=== PATIENT | female | born 1990 | race African-American/Black ===

== ENCOUNTER 2016-06-03 01:50 | Emergency (ER) | payer OTHER ==
[~2016-06-03] VITALS: Ht 165.1 cm; Wt 73.5 kg
[~2016-06-03 01:50] MED LIST: ANUSOL HC,ANUCO25 MG PR; BACTRIM,SEPT1 TABLET PO; COLACE100 MG PO; FIORICET 50-301 EACH PO; FLEXERIL10 MG PO; HYDROCODON-ACE1 EAC7 PO; LIDODERM 5% P1 PATCH TD; MOTRIN600 MG PO; MOTRIN800 MG PO; NAPROSYN500 MG PO; NOHOMEMEDS; PERCOCET 5/31 TABLET PO; PREDNISONE20 MG PO; PROMETHAZINE HC25 M1 PO; ROBITUSSIN AC,T10 ML PO; SPIRIVA1 INHALATI IH; ZOFRAN4 MG PO
[2016-06-03 03:03] LABS: HEMATOCRIT 38.7 % (36.0-46.0); MCH 29.5 PG (29.0-34.0); MCHC 32.6 G/DL (30.0-36.0); MCV 90.6 FL (83-99); MEAN PLAT.VOLUME 11.5 uM^3 (9.5-12.4); PLATELET COUNT 278 K/uL (156-360); RBC DIS.WIDTH-CV 12.2 % (11.8-14.6); RBC DIS.WIDTH-SD 40.7 % (39-53); RED BLOOD COUNT 4.27 M/uL (3.80-5.20); WHITE BLOOD COUNT 6.8 K/uL (4.1-10.2)
[2016-06-03 03:10] LABS: CHLORIDE 106 mEq/L (99-109); POTASSIUM 4.2 mEq/L (3.7-5.4); SODIUM 142 mEq/L (136-147)
[2016-06-03 03:12] LABS: GLUCOSE 90 mg/dL (70-99)
[2016-06-03 03:13] LABS: ANION GAP 12 MEQ/L (2-14)
[2016-06-03 03:14] LABS: TOTAL BILIRUBIN 0.3 mg/dL (0.0-1.0)
[2016-06-03 03:15] LABS: SERUM ETHYL ALCOHOL 98 mg/dL
[2016-06-03 03:16] LABS: ALKALINE PHOSPHATASE 59 IU/L (3-129); GFR ESTIMATE (CALCULATED) > 59 mL/min/
[2016-06-03 03:17] LABS: UREA NITROGEN (BUN) 10 mg/dL (9-23)
[2016-06-03 03:49] LABS: ADD MIUA? NO; BILIRUBIN NEGATIVE; BLOOD NEGATIVE; COLOR YELLOW ((YELLOW)); GLUCOSE (STRIP) NEGATIVE; KETONES NEGATIVE; LEUKOCYTES NEGATIVE; NITRITE NEGATIVE; PROTEIN (STRIP) NEGATIVE; UROBILINOGEN 0.2 MG/DL (0.2-1.0)
[2016-06-03 03:58] LABS: ADD MEDTOX COMMENT Y; AMPHETAMINE NEGATIVE (500 ng/mL); BARBITURATES NEGATIVE (200 ng/mL); BENZODIAZEPINES NEGATIVE (150 ng/mL); COCAINE NEGATIVE (150 ng/mL); INTERNAL CONTROLS VALID? YES; METHADONE NEGATIVE (200 ng/mL); METHAMPHETAMINE NEGATIVE (500 ng/mL); OPIATES (MORPHINE) NEGATIVE (100 ng/mL); OXYCODONE NEGATIVE (100 ng/mL); PHENCYCLIDINE NEGATIVE (25 ng/mL); PROPOXYPHENE NEGATIVE (300 ng/mL); THC CANNABINOIDS PRESUMPTIVE POSITIVE (50 ng/mL); TRICYCLIC ANTIDEPRESSANTS NEGATIVE (300 ng/mL)
[2016-06-03 04:24] VITALS: BP 121/78
== END 2016-06-03 04:24 | disposition home or self-care (01) ==
LOC: EME → EDBD 01:50 → EME 04:24
PROVIDERS: Emergency Medicine
DX: F41.9 Anxiety disorder, unspecified (principal); F10.129 Alcohol abuse with intoxication, unspecified; Y90.4 Blood alcohol level of 80-99 mg/100 ml
CPT/HCPCS: 80053; 81003; 84999; 85027; 99281; 99284; G0480

== ENCOUNTER 2016-07-31 20:57 | Emergency (ER) | payer OTHER ==
[~2016-07-31] VITALS: Ht 162.6 cm; Wt 62.5 kg
[2016-07-31 21:26] LABS: HEMATOCRIT 42.1 % (36.0-46.0); MCH 29.6 PG (29.0-34.0); MCHC 32.5 G/DL (30.0-36.0); MCV 90.9 FL (83-99); MEAN PLAT.VOLUME 11.7 uM^3 (9.5-12.4); PLATELET COUNT 250 K/uL (156-360); RBC DIS.WIDTH-CV 11.9 % (11.8-14.6); RBC DIS.WIDTH-SD 39.8 % (39-53); RED BLOOD COUNT 4.63 M/uL (3.80-5.20); WHITE BLOOD COUNT 6.9 K/uL (4.1-10.2)
[2016-07-31 21:50] LABS: CHLORIDE 104 mEq/L (99-109); POTASSIUM 3.9 mEq/L (3.7-5.4); SODIUM 140 mEq/L (136-147)
[2016-07-31 21:52] LABS: GLUCOSE 92 mg/dL (70-99)
[2016-07-31 21:54] LABS: ANION GAP 11 MEQ/L (2-14); TOTAL BILIRUBIN 0.4 mg/dL (0.0-1.0)
[2016-07-31 21:56] LABS: ALKALINE PHOSPHATASE 53 IU/L (3-129); GFR ESTIMATE (CALCULATED) > 59 mL/min/
[2016-07-31 21:57] LABS: UREA NITROGEN (BUN) 13 mg/dL (9-23)
[2016-07-31 22:06] LABS: QUANTITATIVE HCG < 4.0 MIU/ML
[2016-08-01 00:57] LABS: ADD MIUA? YES; BILIRUBIN NEGATIVE; BLOOD NEGATIVE; COLOR YELLOW ((YELLOW)); GLUCOSE (STRIP) NEGATIVE; KETONES 5; LEUKOCYTES MODERATE; NITRITE NEGATIVE; PROTEIN (STRIP) 30; SPECIFIC GRAVITY 1.024 (1.000-1.030); UROBILINOGEN 0.2 MG/DL (0.2-1.0)
[2016-08-01 01:06] LABS: BACTERIA 1+ /HPF; EPITHELIAL CELLS 2+ /HPF; MUCUS 2+ /LPF; UCUL ADDED? NO; WHITE BLOOD CELLS 20-30 /HPF (0-5)
[2016-08-01] MEDS ORDERED: KEFLEX500 MG PO (01:19)
[2016-08-01] MEDS ORDERED: NAPROSYN500 MG PO (01:19)
[2016-08-01 01:28] VITALS: BP 119/78
[2016-08-01 14:16] LABS: CHLAMYDIA TRACHOMATIS POSITIVE; NEISSERIA GONORRHOEAE NEGATIVE
== END 2016-08-01 01:32 | disposition home or self-care (01) ==
LOC: EME 20:57
PROVIDERS: Physician Assistant
DX: S63.501A Unspecified sprain of right wrist, initial encounter (principal); Z11.3 Encounter for screening for infections with a predominantly sexual mode of transmission; N39.0 Urinary tract infection, site not specified; W18.2XXA Fall in (into) shower or empty bathtub, initial encounter; Y93.E1 Activity, personal bathing and showering; Z88.1 Allergy status to other antibiotic agents
CPT/HCPCS: 73110; 80053; 81003; 84702; 85027; 87086; 87210; 87491; 87591; 99281; 99285; J0696